=== PATIENT | female | born 2000 | race Caucasian/White ===

== ENCOUNTER 2025-04-15 17:29 | Emergency (ER) | payer OTHER, SELFPAY ==
[2025-04-15 17:33] VITALS: BP 161/99; PULSE 84; TEMP 36.8; O2SAT 98; BMI 28.2
--- NOTE | 2025-04-15 17:41 | XR_ITS ---
The [address] [address] Patient Name: KAYLEE BAILEY MRN: [id number] date: 2000 Sex: F Assigned Patient Location: ED.MAIN Current Patient Location: ED.MAIN Accession/Order Number: [id number] Exam Date: 04/15/2025 18:14 Report Date: 04/15/2025 18:15 At the request of: KHADAR MARIANO MD Procedure: XR foot ANDRES 2V 2 views left knee HISTORY: Bilateral foot pain. Injury comparison none No acute displaced fracture. Adequate bony alignment. Unremarkable soft tissues. XR/XR foot ANDRES 2V IMPRESSION: No acute displaced fracture Impression dictated by: Khadar Larson M.D. 04/15/2025 6:15 PM Dictation Location: [place] [address] Electronically authenticated by: [id number] Y Date: 04/15/2025 18:15
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
[2025-04-15 17:50] VITALS: O2SAT 97
[2025-04-15 18:50] VITALS: BP 134/83; PULSE 82; O2SAT 98
== END 2025-04-15 19:11 | disposition home or self-care (01) ==
PROVIDERS: Emergency Provider Emergency Medicine; PCP Family Medicine
DX: S90.32XA Contusion of left foot, initial encounter (principal); S90.31XA Contusion of right foot, initial encounter; V03.90XA Pedestrian on foot injured in collision with car, pick-up truck or van, unspecified whether traffic or nontraffic accident, initial encounter
CPT/HCPCS: 73620; 99283